=== PATIENT | female | born 1975 | race Two or more races ===

== ENCOUNTER 2024-03-01 20:12 | Emergency (ER) | payer MEDICAID, OTHER ==
[~2024-03-01] VITALS: Ht 157.5 cm; Wt 78.0 kg
[2024-03-01 20:31] VITALS: O2SAT 99
[2024-03-01] MEDS ORDERED: ONDANSETRON 4MG ODT PO STA (21:44)
[2024-03-01] MEDS ORDERED: MAGNESIUM/ALUMINUM HYDROXIDE/SIMETHICONE 30ML UDC PO STA (21:44)
[2024-03-01] MEDS ORDERED: FAMOTIDINE 20MG TABLET PO ONE (21:45)
[2024-03-01 23:27] LABS: BASOPHILS % 0.2 % (0.0-2.0); DIFFERENTIAL COMMENT 0; EOSINOPHILS % 1.4 % (0.0-5.0); HEMATOCRIT. 43.4 % (36.0-48.0); MEAN CORPUSCULAR HEMOGLOBIN 24.9 pg (28.0-32.0); MEAN CORPUSCULAR HGB CONC 32.2 g/dL (31.0-37.0); MEAN CORPUSCULAR VOLUME 77.3 fL (81.0-99.0); MEAN PLATELET VOLUME 10.1 fl (7.4-10.4); MONOCYTES % 6.1 % (2.0-8.0); NEUTROPHILS % 67.3 % (40.0-76.0); PLATELET 184 x1000/uL (130-400); RED BLOOD CELL COUNT 5.62 mill/uL (4.2-5.4); RED CELL DISTRIBUTION WIDTH 14.2 % (11.6-14.6); WHITE BLOOD COUNT 10.6 x1000/uL (4.5-11.0)
[2024-03-01 23:31] LABS: CHLORIDE 104 mEq/L (98-107); SODIUM 138 mEq/L (136-145)
[2024-03-01 23:32] LABS: CALCIUM 9.9 mg/dL (8.7-10.4); CARBON DIOXIDE 27 mEq/L (21-32)
[2024-03-01 23:37] LABS: CREATININE 0.7 mg/dL (0.6-1.0); GLUCOSE 196 mg/dL (70-105)
[2024-03-01 23:38] LABS: UREA NITROGEN BLOOD 6 mg/dL (9-23)
[2024-03-01 23:39] LABS: ALANINE AMINOTRANSFERASE 23 IU/L (10-49); ASPARTATE AMINOTRANSFERASE 15 IU/L (<34)
[2024-03-01 23:40] LABS: BILIRUBIN DIRECT 0.2 mg/dL (<=3.0); BILIRUBIN TOTAL 0.7 mg/dL (0.1-1.0)
[2024-03-01] MEDS: FAMOTIDINE 20MG TABLET PO SCH (23:42)
[2024-03-01] MEDS: MAGNESIUM/ALUMINUM HYDROXIDE/SIMETHICONE 30ML UDC PO SCH (23:42)
[2024-03-01] MEDS: ONDANSETRON 4MG ODT PO SCH (23:42)
[2024-03-01 23:43] LABS: HCG SCREEN NEGATIVE
[2024-03-01] MEDS ORDERED: FAMO20TA8 PO (23:48)
[2024-03-01] MEDS ORDERED: MAG355OR21 MT (23:48)
[2024-03-01] MEDS ORDERED: ONDA4TAB50 MT (23:48)
[2024-03-02 00:15] VITALS: BP 141/68; PULSE 79; RESP 17; TEMP 36.89184; O2SAT 99
== END 2024-03-02 00:15 | disposition home or self-care (01) ==
LOC: ER 20:12
DX: R10.13 Epigastric pain (principal); R11.2 Nausea with vomiting, unspecified; E11.9 Type 2 diabetes mellitus without complications
CPT/HCPCS: 80076; 80048; 84703; 83690; 85025; 36415; 76705; 99284; Q0162; Z7610 ×3